=== PATIENT | male | born 1950 | race Caucasian/White ===

== ENCOUNTER 2019-05-10 12:26 | Emergency (ER) | payer MEDICARE, OTHER ==
[~2019-05-10] VITALS: Ht 182.9 cm; Wt 113.4 kg
[~2019-05-10 12:26] MED LIST: ASCO500C PO; ATOR20TA PO; FENO160T PO; LEVO25TA55 PO; LOSA1TAB2 PO; MELA3TAB56 PO; MULT1TAB6 PO; OMEP20CA10 PO; SILD50TA PO; VALA500T5 PO; WARF4TAB68 PO
[2019-05-10 12:30] VITALS: BP 149/62
[2019-05-10] MEDS ORDERED: LIDO:MAALOX 1:1 20 ML SINGLE DOSE. PO ONE (13:00)
[2019-05-10] MEDS ORDERED: LIDO15SO2 PO (13:13)
--- NOTE | 2019-05-10 13:14 | PHYS DOC ---
Past History Past Medical History: Arthritis, DVT, GERD, High Cholesterol, Hypertension, Hypothyroid, Pneumonia, Other Additional Past Medical Histor: DVT Past Surgical History: Hip Replacement, Other Additional Past Surgical Histo: SINUS, HEMORRHOID Smoking: Non-smoker Alcohol Use: None Drug Use: None Adult General Chief Complaint Chief Complaint: DIFFICULTY SWALLOWING HPI HPI Patient is a 69-year-old male who presents with complaint of burning pain in his esophagus after accidentally swallowing some water while he was in the hot tub last night. Patient states that the water tasted terrible and he knows that it was not chlorine because he knows the taste of chlorine. Patient states that he was worried that the water may have had bacteria in it and may have caused an infection in his esophagus. He denies any fever. Patient's wonders if maybe there were some different chemicals besides chlorine that were in the water. Patient does indicate that he felt burning pretty much immediately after he swallowed the water.[] Review of Systems Review of Systems Constitutional: Denies fever or chills [] Respiratory: Denies cough or shortness of breath [] Cardiovascular: No additional information not addressed in HPI [] GI: Complains of epigastric discomfort without vomiting or diarrhea [] Integument: Denies rash or skin lesions [] Current Medications Current Medications Current Medications Medications (Trade) Dose Ordered Sig/Eleni Start Time Stop Time Status Last Admin Dose Admin Multi-Ingredient Mouthwash/Gargle (Gi Cocktail) 20 ml 1X ONCE 05/10/19 13:00 05/10/19 13:01 DC 05/10/19 12:53 20 ML Allergies Allergies Allergies Coded Allergies Type Severity Reaction Last Updated Verified morphine Allergy Severe 03/27/14 Yes fondaparinux Allergy Intermediate 03/27/14 Yes nitroglycerin Adverse Reaction Severe 03/27/14 Yes Physical Exam Physical Exam Constitutional: Well developed, well nourished, no acute distress, non-toxic appearance. [] HENT: Normocephalic, atraumatic, bilateral external ears normal, oropharynx moist, no oral exudates, nose normal. [] Neck: Normal range of motion, no tenderness, supple, no stridor. [] Cardiovascular:Heart rate regular rhythm, no murmur [] Lungs & Thorax: Bilateral breath sounds clear to auscultation [] Abdomen: Bowel sounds normal, soft, no tenderness. [] Skin: Warm, dry, no erythema, no rash. [] Current Patient Data Vital Signs Vital Signs Date Time Temp Pulse Resp B/P (MAP) Pulse Ox O2 Delivery O2 Flow Rate FiO2 05/10/19 12:30 97.9 68 20 96 Room Air EKG EKG [] Radiology/Procedures Radiology/Procedures [] Course & Med Decision Making Course & Med Decision Making Pertinent Labs and Imaging studies reviewed. (See chart for details) Patient given GI cocktail in the emergency room and patient reports complete symptomatic relief. Dragon Disclaimer Dragon Disclaimer This electronic medical record was generated, in whole or in part, using a voice recognition dictation system. Departure Departure: Impression: Primary Impression: Chemical esophagitis Disposition: HOME, SELF-CARE Condition: STABLE Referrals: DEEP LÓPEZ (PCP) Patient Instructions: Esophagitis Scripts Lidocaine HCl (Lidocaine HCl Viscous) 15 Ml Solution 10 ML PO Q4HRS PRN for reflux, #100 ML Prov: BYRON STEVENSON Jr. DO 05/10/19 BYRON STEVENSON Jr. DO May 10, 2019 13:14
== END 2019-05-10 13:18 | disposition home or self-care (01) ==
LOC: ER 12:26
DX: K20.8 Other esophagitis (principal); M19.90 Unspecified osteoarthritis, unspecified site; Z86.718 Personal history of other venous thrombosis and embolism; K21.9 Gastro-esophageal reflux disease without esophagitis; E78.00 Pure hypercholesterolemia, unspecified; I10 Essential (primary) hypertension; E03.9 Hypothyroidism, unspecified; Z88.5 Allergy status to narcotic agent; Z88.8 Allergy status to other drugs, medicaments and biological substances
CPT/HCPCS: 99282

== ENCOUNTER 2021-03-19 17:32 | Observation (INO) | payer MEDICARE, OTHER ==
[~2021-03-19] VITALS: Ht 182.9 cm; Wt 113.5 kg
[~2021-03-19 17:32] MED LIST changes: +LIDO20SO10 PO; +MELA3TAB4 PO; -MELA3TAB56 PO; -OMEP20CA10 PO; +OMEP20CA16 PO
--- NOTE | 2021-03-19 17:56 | PHYS DOC ---
Past History Past Medical History: Arthritis, DVT, GERD, High Cholesterol, Hypertension, Hypothyroid, Pneumonia, Other Additional Past Medical Histor: DVT Past Surgical History: Hip Replacement, Other Additional Past Surgical Histo: SINUS, HEMORRHOID Smoking: Non-smoker Alcohol Use: None Drug Use: None General Adult HPI: HPI: ".. 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 now I got runny nose and fever.. non- productive cough... 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 Pt. has had COVID vaccination x 2 in Jul. ( Typle unknown- suspect Moderna vs Pfizer). No recent travel. 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 Has had a past medical history of DVTs and pulmonary embolisms and is taking Coumadin for anticoagulation. Patient denies any recent travel. Patient denies any history of immunosuppression. Has been taking Tylenol with minimal relief to his fever cannot take ibuprofen because of his Coumadin usage. Review of Systems: Review of Systems: Constitutional: History fever or chills Eyes: Denies change in visual acuity HENT: Denies nasal congestion or sore throat Respiratory: History cough or shortness of breath Cardiovascular: Denies chest pain or edema GI: Denies abdominal pain, nausea, vomiting, bloody stools or diarrhea : Denies dysuria Musculoskeletal: Denies back pain or joint pain. History of weakness Integument: Denies rash Neurologic: Denies headache, focal weakness or sensory changes Endocrine: Denies polyuria or polydipsia Lymphatic: Denies swollen glands Psychiatric: Denies depression or anxiety Family History: Family History: Noncontributory to presentation Current Medications: Current Meds: See nursing for home meds Allergies: Allergies: Allergies Coded Allergies Type Severity Reaction Last Updated Verified morphine Allergy Severe 03/27/14 Yes fondaparinux Allergy Intermediate 03/27/14 Yes nitroglycerin Adverse Reaction Severe 03/27/14 Yes Physical Exam: PE: Constitutional: Well developed, well nourished, moderate acute distress,ill in appearance. [] HENT: Normocephalic, atraumatic, bilateral external ears normal, oropharynx moist, no oral exudates, nose congested with clear rhinorrhea drainage Eyes: PERRLA, EOMI, conjunctiva normal, no discharge. [] Neck: Normal range of motion, no tenderness, supple, no stridor. [] Cardiovascular:Heart rate regular rhythm, no murmur [] DE to left Lungs & Thorax: Bilateral breath sounds to apex with scattered wheezes and crackles particularly in bases on auscultation [] Abdomen: Bowel sounds normal, soft, no tenderness, no masses, no pulsatile mas ses. [] Skin: Warm, dry, no erythema, no rash. [] Back: No tenderness, no CVA tenderness. [] Extremities: No tenderness, no cyanosis, no clubbing, ROM intact, ankle edema. [] No cording appreciated Neurologic: Alert and oriented X 3, normal motor function, normal sensory function, no focal deficits noted. [] Psychologic: Affect anxious, judgement normal, mood normal. [] EKG: EKG: My interpretation EKG shows a rhythm at 65 bpm left axis. Abnormal EKG. But no findings acute STEMI with contralateral changes time of this EKG is 1823 hrs. [] Radiology/Procedures: Radiology/Procedures: [][place] [address] IMAGING REPORT Signed PATIENT: FAMILIA DEGROOT ACCOUNT: [id number] : 1950 LOCATION: [address] [place] [address] AGE: 70 SEX: M EXAM STATUS: ADM IN ORD. PHYSICIAN: PRETTY DUQUE MD REASON: covid + , cough, weakness PROCEDURE: CHEST PA & LATERAL Chest PA and lateral: Reason for examination: History of DVT. Dyspnea. Covid positive. Cough and we akness. Comparison is made to previous chest dated 04/01/2014. The heart size is normal. Mediastinum is unremarkable. Lung nguyễn continue show pulmonary nodule in the right upper lobe which is stable. No new infiltrates or pleural effusions are evident. No acute bony abnormality is seen. Impression: No acute cardiopulmonary disease. CT angiogram of the chest with contrast: Helical images were obtained through the chest with intravenous administration of 100 cc Omnipaque 350 using PE protocol. 3-D MIPS reconstruction was performed in sagittal and coronal planes. Exposure: One or more of the following individualized dose reduction techniques were utilized for this examination: 1. Automated exposure control 2. Adjustment of the mA and/or kV according to patient size 3. Use of iterative reconstruction technique. No abnormality seen at the thyroid gland. The trachea and mainstem bronchi show no intraluminal lesions. No abnormality seen at the esophagus. The thoracic aorta shows no aneurysmal dilatation or dissection. The heart size is normal with no pericardial effusion. No pulmonary embolus is evident. Calcified nodule is seen in the right upper lobe. No other significant infiltrates or pleural effusions are seen. No pneumothorax is evident. No acute bony abnormalities are seen. No abnormality seen at the liver, spleen, adrenal glands, gallbladder or pancreas or the visualized portions of the kidneys. IMPRESSION: No pulmonary embolus. No acute infiltrates or pleural effusions evident. Electronically signed by: Marleny Land MD (03/19/2021 9:30 PM) [facility] DICTATED AND SIGNED BY: MARLENY LAND MD DATE: 03/19/212120 CC: PRETTY DUQUE MD; DEEP LÓPEZ; KVNG DEVI MD ~MTH0 0 Heart Score: C/O Chest Pain: No HEART Score for Chest Pain: HEART Score for Chest Pain Response (Comments) Value History Moderately Suspicious 1 ECG Nonspecific Repolarizatio 1 Age > 65 2 Risk Factors 1 or 2 Risk Factors 1 Troponin >1-<3x Normal Limit 1 Total 6 Risk Factors: Risk Factors: DM, Current or recent (<one month) smoker, HTN, HLP, family history of CAD, obesity. Risk Scores: Score 0 - 3: 2.5% MACE over next 6 weeks - Discharge Home Score 4 - 6: 20.3% MACE over next 6 weeks - Admit for Clinical Observation Score 7 - 10: 72.7% MACE over next 6 weeks - Early Invasive Strategies Course & Med Decision Making: Course & Med Decision Making Pertinent Labs and Imaging studies reviewed. (See chart for details) Discussed presentation,testing and tx. plan with Dr. Devi- Admit to his service with cardiology consult. Impression: 1. COVID +, ( did have two COVID vaccinations in ) 2. Accelerated hypertension 3. Elevated troponin 0 0.213 4. History of pulmonary embolisms and DVT on Coumadin 5. INR 2.3 6. Negative strep and flu [] Dragon Disclaimer: Dragon Disclaimer: This electronic medical record was generated, in whole or in part, using a voice recognition dictation system. Departure Departure: Referrals: DEEP LÓPEZ (PCP) Albert Disclaimer This chart was dictated in whole or in part using Voice Recognition software in a busy, high-work load, and often noisy Emergency Department environment. It may contain unintended and wholly unrecognized errors or omissions. PRETTY DUQUE MD Mar 19, 2021 17:55
[2021-03-19] MEDS ORDERED: ACETAMINOPHEN 500 MG TABLET PO ONE (18:15)
[2021-03-19] MEDS ORDERED: IOHEXOL 350 MG/ML 100 ML VIAL. IV ONE (18:15)
[2021-03-19] MEDS ORDERED: AZITHROMYCIN 250 MG TABLET. PO ONE (18:15)
[2021-03-19] MEDS ORDERED: IV RINGERS SOLUTION,LACTATED 1,000 ML IV ONE (18:15)
--- NOTE | 2021-03-19 18:31 | EKG ---
[address] [address] Test Date: 2021-03-19 Test Time: 18:23:43 Pat Name: FAMILIA DEGROOT Department: Room: Gender: M Senior Bookkeeper: MARGIE : 1950 Requested By: PRETTY DUQUE Order Number: [id number] Reading MD: Darvin Campo Measurements Intervals [place] Rate: 65 P: 38 UT: 158 QRS: -26 QRSD: 124 T: 95 QT: 398 QTc: 415 Interpretive Statements SINUS RHYTHM LEFTWARD AXIS LVH WITH REPOLARIZATION ABNORMALITY ABNORMAL ECG RI6.02 No previous ECG available for comparison Electronically Signed On 03-20-2021 12:41:00 CDT by Darvin Campo
[2021-03-19 18:56] LABS: BASO # 0.1 x10^3/uL (0.0-0.2); BASO % 1 % (0-3); EOS # 0.1 x10^3/uL (0.0-0.7); EOS % 1 % (0-3); HEMATOCRIT 44.2 % (39.0-53.0); HEMOGLOBIN 14.5 g/dL (13.0-17.5); LYMPH # 1.2 x10^3/uL (1.0-4.8); LYMPH % 15 % (24-48); MEAN CORPUSCULAR HEMOGLOBIN 33 pg (25-35); MEAN CORPUSCULAR HGB CONC 33 g/dL (31-37); MEAN CORPUSCULAR VOLUME 100 fL (79-100); MONO # 1.2 x10^3/uL (0.0-1.1); MONO % 15 % (0-9); NEUT # 5.4 x10^3uL (1.8-7.7); NEUT % 68 % (31-73); PLATELET COUNT 217 x10^3/uL (140-400); RED BLOOD COUNT 4.43 x10^6/uL (4.30-5.70); WHITE BLOOD COUNT 7.9 x10^3/uL (4.0-11.0)
[2021-03-19 19:14] LABS: INFLUENZA A PATIENT NEGATIVE (NEGATIVE); INFLUENZA B PATIENT NEGATIVE (NEGATIVE)
[2021-03-19] MEDS ORDERED: NITROGLYCERIN OINT 1 GM PACKET. TP ONE (19:15)
[2021-03-19] MEDS ORDERED: ONDANSETRON PF 4 MG/2 ML VIAL. IVP PRN (19:30)
[2021-03-19] MEDS ORDERED: ACETAMINOPHEN 325 MG TABLET PO PRN (19:30)
[2021-03-19 20:17] LABS: CALCIUM 9.2 mg/dL (8.5-10.1); CREATININE 1.1 mg/dL (0.7-1.3); GFR 66.4; POTASSIUM 4.4 mmol/L (3.5-5.1)
[2021-03-19] MEDS: NITROGLYCERIN OINT 1 GM PACKET. TP SCH (21:00)
--- NOTE | 2021-03-19 21:32 | RAD ---
Chest PA and lateral: Reason for examination: History of DVT. Dyspnea. Covid positive. Cough and weakness. Comparison is made to previous chest dated 04/01/2014. The heart size is normal. Mediastinum is unremarkable. Lung nguyễn continue show pulmonary nodule in the right upper lobe which is stable. No new infiltrates or pleural effusions are evident. No acute b faby abnormality is seen. Impression: No acute cardiopulmonary disease. CT angiogram of the chest with contrast: Helical images were obtained through the chest with intravenous administration of 100 cc Omnipaque 35 0 using PE protocol. 3-D MIPS reconstruction was performed in sagittal and coronal planes. Exposure: One or more of the following individualized dose reduction techniques were utilized for thi s examination: 1. Automated exposure control 2. Adjustment of the mA and/or kV according to patient size 3. Use of iterative reconstruction technique. No abnormality seen at the thyroid gland. The trachea and mainstem bronchi show no intraluminal lesio ns. No abnormality seen at the esophagus. The thoracic aorta shows no aneurysmal dilatation or dissec tion. The heart size is normal with no pericardial effusion. No pulmonary embolus is evident. Calcifi ed nodule is seen in the right upper lobe. No other significant infiltrates or pleural effusions are seen. No pneumothorax is evident. No acute bony abnormalities are seen. No abnormality seen at the liver, spleen, adrenal glands, gallbladder or pancreas or the visualized p ortions of the kidneys. IMPRESSION: No pulmonary embolus. No acute infiltrates or pleural effusions evident. Electronically signed by: Marleny Steward MD (03/19/2021 9:30 PM) BETTYE
[2021-03-19 22:00] VITALS: BP 177/67
[2021-03-19] MEDS ORDERED: MELATONIN 3 MG TABLET PO PRN (22:15)
[2021-03-20 05:55] LABS: BASO # 0.1 x10^3/uL (0.0-0.2); BASO % 1 % (0-3); EOS # 0.1 x10^3/uL (0.0-0.7); EOS % 1 % (0-3); HEMATOCRIT 41.1 % (39.0-53.0); LYMPH # 1.1 x10^3/uL (1.0-4.8); LYMPH % 15 % (24-48); MEAN CORPUSCULAR HEMOGLOBIN 34 pg (25-35); MEAN CORPUSCULAR HGB CONC 34 g/dL (31-37); MEAN CORPUSCULAR VOLUME 99 fL (79-100); MONO # 1.1 x10^3/uL (0.0-1.1); MONO % 16 % (0-9); NEUT # 4.9 x10^3uL (1.8-7.7); NEUT % 67 % (31-73); PLATELET COUNT 202 x10^3/uL (140-400); RED BLOOD COUNT 4.15 x10^6/uL (4.30-5.70); RED CELL DISTRIBUTION WIDTH 12.9 % (11.5-14.5); WHITE BLOOD COUNT 7.3 x10^3/uL (4.0-11.0)
[2021-03-20] MEDS ORDERED: HYDR-2145 PO (06:02)
[2021-03-20] MEDS ORDERED: LOSA50TA86 PO (06:02)
[2021-03-20] MEDS ORDERED: DIPH25CA58 PO (06:02)
[2021-03-20 06:05] LABS: CALCIUM 8.8 mg/dL (8.5-10.1); CREATININE 1.2 mg/dL (0.7-1.3); POTASSIUM 4.3 mmol/L (3.5-5.1)
[2021-03-20 06:12] VITALS: BP 142/71
[2021-03-20] MEDS ORDERED: diphenhydrAMINE HCL 25 MG CAPSULE PO PRN (06:15)
[2021-03-20] MEDS ORDERED: LEVOTHYROXINE 25 MCG TABLET. PO SCH (06:30)
[2021-03-20] MEDS ORDERED: PANTOPRAZOLE 40 MG TABLET. PO SCH (07:30)
--- NOTE | 2021-03-20 08:22 | PDOC2 ---
CARDIAC CONSULT DATE OF CONSULT DOS: DATE: 03/20/21 TIME: 08:12 REASON FOR CONSULT Reason for Consult Elevated troponin REFERRING PHYSICIAN Referring Physician Dr. Devi SOURCE Source: Chart review, Patient HPI History of Present Illness This is a 70 yo male who presented secondary to fevers, chills, body aches, cough, and shortness of breath. Troponin noted to be mildly elevated, which prompted this consult. He denies any chest pain, palpitations, dizziness, diaphoresis, or nausea/vomiting. Continue to have significant cough. 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 Is fully vaccinated. PAST MEDICAL HISTORY Cardiovascular: HTN, hyperipidemia Pulmonary: Pulmonary embolus (DVT) CENTRAL NERVOUS SYSTEM: CVA Endocrine: Hypothyroidism PAST SURGICAL HISTORY Past Surgical History: No pertinent history SOCIAL HISTORY ALCOHOL: none Drugs: None CURRENT MEDICATIONS Current Medications Current Medications Acetaminophen (Tylenol) 1,000 mg 1X ONCE PO Last administered on 03/19/21at 18:51; Start 03/19/21 at 18:15; Stop 03/19/21 at 18:21; Status DC Lactated Ringer's 1,000 ml @ 1,000 mls/hr 1X ONCE IV Last administered on 03/19/21at 18:37; Start 03/19/21 at 18:15; Stop 03/19/21 at 19:14; Status DC Azithromycin (Zithromax) 500 mg 1X ONCE PO Last administered on 03/19/21at 18:51; Start 03/19/21 at 18:15; Stop 03/19/21 at 18:21; Status DC Iohexol (Omnipaque 350 Mg/ml) 100 ml 1X ONCE IV Last administered on 03/19/21at 20:29; Start 03/19/21 at 18:15; Stop 03/19/21 at 18:21; Status DC Nitroglycerin (Nitro-Bid Oint) 1 inch 1X ONCE TP Last administered on 03/19/21at 19:41; Start 03/19/21 at 19:15; Stop 03/19/21 at 19:20; Status DC Ondansetron HCl (Zofran) 4 mg PRN Q4HRS PRN IVP NAUSEA/VOMITING; Start 03/19/21 at 19:30; Stop 03/20/21 at 19:29 Acetaminophen (Tylenol) 650 mg PRN Q4HRS PRN PO FEVER > 100.3'F; Start 03/19/21 at 19:30; Stop 03/20/21 at 19:29 Nitroglycerin (Nitro-Bid Oint) 1 inch TID TP ; Start 03/19/21 at 21:00 Melatonin (Melatonin) 3 mg PRN QHS PRN PO INSOMNIA Last administered on 03/19/21at 22:31; Start 03/19/21 at 22:15 Atorvastatin Calcium (Lipitor) 20 mg DAILY PO ; Start 03/20/21 at 09:00 Levothyroxine Sodium (Synthroid) 25 mcg DAILY06 PO Last administered on 03/20/21at 07:32; Start 03/20/21 at 06:30 Valacyclovir HCl (Valtrex) 500 mg DAILY PO ; Start 03/20/21 at 09:00 Fenofibrate (Tricor) 145 mg DAILY PO ; Start 03/20/21 at 09:00 Pantoprazole Sodium (Protonix) 40 mg DAILYAC PO ; Start 03/20/21 at 07:30 Diphenhydramine HCl (Benadryl) 50 mg PRN Q6HRS PRN PO ITCHING; Start 03/20/21 at 06:15 Hydrochlorothiazide (Hydrodiuril) 25 mg DAILY PO ; Start 03/20/21 at 09:00 Losartan Potassium (Cozaar) 50 mg QHS PO ; Start 03/20/21 at 21:00 Active Scripts Active Lidocaine HCl Viscous (Lidocaine HCl) 15 Ml Solution 10 Ml PO Q4HRS PRN Reported Hydrochlorothiazide Tablet (Hydrochlorothiazide) 25 Mg Tablet 25 Mg PO DAILY Cozaar (Losartan Potassium) 50 Mg Tablet 50 Mg PO QHS Benadryl (Diphenhydramine Hcl) 25 Mg Capsule 2 Cap PO PRN Q6HRS PRN 30 Days Viagra (Sildenafil Citrate) 50 Mg Tablet 1 Tab PO UD Melatonin 3 Mg Tablet 1 Tab PO QHS Fenofibrate 160 Mg Tablet 1 Tab PO DAILY Hyzaar 50-12.5 Tablet (Losartan/Hydrochlorothiazide) 1 Each Tablet 1 Tab PO DAILY Lipitor (Atorvastatin Calcium) 20 Mg Tablet 1 Tab PO DAILY Coumadin (Warfarin Sodium) 4 Mg Tablet 1 Tab PO DAILY Vitamin C (Ascorbic Acid) 500 Mg Capsule.er 500 Mg PO Centrum Complete Multivit Tab (Multivitamin/Iron/Folic Acid) 1 Each Tablet 1 Each PO Valtrex (Valacyclovir Hcl) 500 Mg Tablet 1 Tab PO DAILY Omeprazole 20 Mg Capsule. 1 Cap PO DAILY Synthroid (Levothyroxine Sodium) 25 Mcg Tablet 1 Tab PO DAILY ALLERGIES Allergies: Coded Allergies: morphine (Verified Allergy, Severe, 03/27/14) fondaparinux (Verified Allergy, Intermediate, 03/27/14) nitroglycerin (Verified Adverse Reaction, Severe, 03/27/14) ROS Review of Systems 14 point ROS conducted with pertinent positives noted above in HPI PHYSICAL EXAM General: Alert, Oriented X3, Cooperative, No acute distress HEENT: Atraumatic, Mucous membr. moist/pink Lungs: Other (on RA) Heart: Regular rate Abdomen: Soft, No tenderness Extremities: No edema, Normal pulses Skin: No breakdown Neuro: Sensation intact Psych/Mental Status: Mental status NL, Mood NL MUSCULOSKELETAL: Osteoarthritic changes both hands VITALS Vital Signs Vital Signs Date Time Temp Pulse Resp B/P (MAP) Pulse Ox O2 Delivery O2 Flow Rate FiO2 03/20/21 06:12 99.5 63 18 142/71 (94) 94 Room Air LABS LABS Laboratory Tests Test 03/19/21 00:10 03/19/21 18:16 03/19/21 18:24 03/19/21 18:25 Troponin I Quantitative 0.238 ng/mL (0-0.055) 0.213 ng/mL (0-0.055) White Blood Count 7.9 x10^3/uL (4.0-11.0) Red Blood Count 4.43 x10^6/uL (4.30-5.70) Hemoglobin 14.5 g/dL (13.0-17.5) Hematocrit 44.2 % (39.0-53.0) Mean Corpuscular Volume 100 fL (79-100) Mean Corpuscular Hemoglobin 33 pg (25-35) Mean Corpuscular Hemoglobin Concent 33 g/dL (31-37) Red Cell Distribution Width 13.0 % (11.5-14.5) Platelet Count 217 x10^3/uL (140-400) Neutrophils (%) (Auto) 68 % (31-73) Lymphocytes (%) (Auto) 15 % (24-48) Monocytes (%) (Auto) 15 % (0-9) Eosinophils (%) (Auto) 1 % (0-3) Basophils (%) (Auto) 1 % (0-3) Neutrophils # (Auto) 5.4 x10^3uL (1.8-7.7) Lymphocytes # (Auto) 1.2 x10^3/uL (1.0-4.8) Monocytes # (Auto) 1.2 x10^3/uL (0.0-1.1) Eosinophils # (Auto) 0.1 x10^3/uL (0.0-0.7) Basophils # (Auto) 0.1 x10^3/uL (0.0-0.2) Prothrombin Time 23.7 SEC (9.4-11.4) Prothromb Time International Ratio 2.3 (0.9-1.1) Activated Partial Thromboplast Time 29 SEC (23-33) Sodium Level 137 mmol/L (136-145) Potassium Level 4.4 mmol/L (3.5-5.1) Chloride Level 103 mmol/L (98-107) Carbon Dioxide Level 26 mmol/L (21-32) Anion Gap 8 (6-14) Blood Urea Nitrogen 20 mg/dL (8-26) Creatinine 1.1 mg/dL (0.7-1.3) Estimated GFR (Cockcroft-Gault) 66.4 Glucose Level 107 mg/dL (70-99) Calcium Level 9.2 mg/dL (8.5-10.1) JI-Vdg-M-Type Natriuretic Peptide 394 pg/mL (0-124) Group A Streptococcus Rapid Negative (NEGATIVE) Influenza Type A (Rapid) Negative (NEGATIVE) Influenza Type B (Rapid) Negative (NEGATIVE) SARS-CoV-2 Antigen (Rapid) Positive (NEGATIVE) Test 03/19/21 19:08 03/20/21 05:38 Creatine Kinase 205 U/L (39-308) White Blood Count 7.3 x10^3/uL (4.0-11.0) Red Blood Count 4.15 x10^6/uL (4.30-5.70) Hemoglobin 14.0 g/dL (13.0-17.5) Hematocrit 41.1 % (39.0-53.0) Mean Corpuscular Volume 99 fL (79-100) Mean Corpuscular Hemoglobin 34 pg (25-35) Mean Corpuscular Hemoglobin Concent 34 g/dL (31-37) Red Cell Distribution Width 12.9 % (11.5-14.5) Platelet Count 202 x10^3/uL (140-400) Neutrophils (%) (Auto) 67 % (31-73) Lymphocytes (%) (Auto) 15 % (24-48) Monocytes (%) (Auto) 16 % (0-9) Eosinophils (%) (Auto) 1 % (0-3) Basophils (%) (Auto) 1 % (0-3) Neutrophils # (Auto) 4.9 x10^3uL (1.8-7.7) Lymphocytes # (Auto) 1.1 x10^3/uL (1.0-4.8) Monocytes # (Auto) 1.1 x10^3/uL (0.0-1.1) Eosinophils # (Auto) 0.1 x10^3/uL (0.0-0.7) Basophils # (Auto) 0.1 x10^3/uL (0.0-0.2) Sodium Level 137 mmol/L (136-145) Potassium Level 4.3 mmol/L (3.5-5.1) Chloride Level 102 mmol/L (98-107) Carbon Dioxide Level 28 mmol/L (21-32) Anion Gap 7 (6-14) Blood Urea Nitrogen 18 mg/dL (8-26) Creatinine 1.2 mg/dL (0.7-1.3) Estimated GFR (Cockcroft-Gault) 60.0 Glucose Level 99 mg/dL (70-99) Calcium Level 8.8 mg/dL (8.5-10.1) Troponin I Quantitative 0.232 ng/mL (0-0.055) ASSESSMENT/PLAN Assessment/Plan 1. Acute viral syndrome, fevers; COVID +; fully vaccinated 08/04 2. Mild troponin elevation; highest 0.2. Most probably type II, demand ischemia secondary to above. CP free 3. Accelerated hypertension; better controlled 4. Hyperlipidemia; statin 5. H/o DVT, PE. on chronic OAC with warfarin. INR 2.3. CTA negative for PE 6. Hypothyroidism Recommendations Resume home antiHTN therapy Warfarin for DVT/PE prophylaxis Will arrange outpatient echo when recovered from COVID Supportive care GRIS ABDALLA APRN Mar 20, 2021 08:22
[2021-03-20] MEDS ORDERED: valACYclovir 500 MG TABLET. PO SCH (09:00)
[2021-03-20] MEDS ORDERED: ATORVASTATIN CALCIUM 20 MG TABLET PO SCH (09:00)
[2021-03-20] MEDS: NITROGLYCERIN OINT 1 GM PACKET. TP SCH ×2 (09:00→14:00)
[2021-03-20] MEDS ORDERED: hydroCHLOROthiazide 25 MG TABLET. PO SCH (09:00)
[2021-03-20] MEDS ORDERED: FENOFIBRATE NANOCRYSTALLIZED 145 MG TABLET PO SCH (09:00)
[2021-03-20 10:44] VITALS: BP 119/64
[2021-03-20 14:57] VITALS: BP 148/74
[2021-03-20] MEDS ORDERED: AZIT250T PO (15:09)
--- NOTE | 2021-03-20 15:47 | SSS ---
HISTORY OF PRESENT ILLNESS: The patient is a 70-year-old male patient who was admitted through the Emergency Room with a complaint of dyspnea, nonproductive cough, fever, chills, malaise, arthralgia, myalgia. 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 He had a past medical history of DVT and pulmonary embolism and is taking Coumadin for anticoagulation. He denied any recent travel, no history of immunosuppression, has been taking Tylenol with minimal relief to his fever, cannot take ibuprofen because of his Coumadin usage. He was extensively investigated in the Emergency Room, has had lab work and imaging studies. His white cell count was normal at 7.9 with normal platelet count. His prothrombin time was 23.7 and INR of 2.3. His chemistry was also mostly unremarkable except for slightly elevated troponin that has peaked up to 2.38 and he was continued on all his medications together with Zithromax and Tylenol and he did actually well. He remained afebrile since admission and his white cell count was normal as well as lab work. He was seen in consultation by the Cardiology team and it was felt that his mild troponin elevation is most probably type 2 demand ischemia secondary to above. He is chest pain free and his CT scan of the chest with PE protocol showed no evidence of pulmonary embolism, no acute infiltrate or pleural effusion evident and given that he remained afebrile, his oxygen saturation was 96% with a normal lung. A decision was made to discharge him home to continue on Zithromax with written instruction how to take care of himself at home and avoid infecting other family members and also with a clear instruction if his symptoms worsened that he should come back to the Emergency Room. PAST MEDICAL HISTORY: Significant for hypertension, hyperlipidemia, hypothyroidism, DVT and PE. He also has a history of obstructive sleep apnea, although he did not require CPAP or BiPAP according to him. PAST SURGICAL HISTORY: Significant for right total hip arthroplasty. He underwent also hemorrhoidectomy. He has fistulectomy, impacted wisdom teeth removal, dislocated right shoulder pending reconstructive surgery. He has colonoscopy multiple times as his father has also colon cancer. ALLERGIES: HE IS ALLERGIC TO FONDAPARINUX, MORPHINE AND NITROGLYCERIN. MEDICATIONS: He is currently on following medications: He is on diphenhydramine 25 mg. He takes two capsules every 6 hours as needed, Valtrex 500 mg p.o. daily, warfarin 4 mg daily, fenofibrate 160 mg daily, atorvastatin calcium 20 mg daily, sildenafil citrate 50 mg once as needed, losartan potassium 50 mg at bedtime, losartan/hydrochlorothiazide 50/12.5 one tablet once a day, hydrochlorothiazide 25 mg daily, Lidoderm (lidocaine patch viscous) 10 mL p.o. q. 4 hourly p.r.n., omeprazole 20 mg daily, levothyroxine sodium 25 mcg once a day, vitamin C for ascorbic acid 500 mg daily, multivitamin with mineral 1 tablet once a day and melatonin 3 mg at bedtime. FAMILY HISTORY: He has 4 brothers and 3 sisters. Two brothers have DVTs and PEs. Sisters are healthy. Mother at the age of 87, she was known to have DVT. Father at the age of 83 because of prostate cancer and also colon cancer. SOCIAL HISTORY: He is , has 2 daughters. He never smoked, does not drink alcohol or use recreational drugs. PHYSICAL EXAMINATION: GENERAL: When I saw him this afternoon, he was resting flat, comfortably in bed, in no apparent respiratory distress. There was no pallor, jaundice, cyanosis or thyromegaly. No jugular venous distention. No lower limb edema. VITAL SIGNS: His heart rate was 67, blood pressure was 119/64, temperature was 99, respiratory rate was 20 and oxygen saturation was 96%. HEAD, EYES, EARS, NOSE, AND THROAT: Normocephalic, atraumatic. NECK: Supple. HEART: Showed normal first and second heart sounds. No gallop, rub or murmur. CHEST: Clear to auscultation. No crepitation or rhonchi. ABDOMEN: Distended, soft, nontender. NEUROLOGIC: He is awake, alert, responding appropriately. All his cranial nerves are intact. He moves extremities without difficulty. He ambulates without assistance or assistive devices. LABORATORY DATA: His lab work showed a white cell count 7300, hemoglobin 14, hematocrit 41, MCV 99 and platelet count 202,000 with normal manual differential. His prothrombin time was 21.8, INR of 2.2. His chemistry showed a serum sodium 137, potassium 4.3, chloride 102, bicarbonate 28, anion gap of 7, BUN 18, creatinine 1.2. Estimated GFR was 60 mL per minute. His glucose was 99, calcium was 8.8. His troponin has peaked to 0.38, for which he was seen by the Cardiology team who felt that this is type 2 non-ST segment elevation due to demand ischemia. His coronavirus rapid testing was positive; however, the influenza A, B and group A Streptococcus rapid testing was negative. He was discharged home to continue all his medications including ascorbic acid 500 mg once a day, atorvastatin calcium 20 mg daily, diphenhydramine 50 mg every 6 hours as needed, fenofibrate 160 mg daily, hydrochlorothiazide 25 mg daily, levothyroxine sodium 25 mcg once a day, losartan potassium (Cozaar) 50 mg daily, losartan/hydrochlorothiazide 50/12.5 one tablet once a day, melatonin 3 mg at bedtime, multivitamin with mineral 1 tablet once a day, omeprazole 20 mg once a day, sildenafil 50 mg once a day as needed, valacyclovir and he was discharged also on Valtrex 500 mg daily and warfarin 4 mg daily. FINAL DISCHARGE DIAGNOSES: 1. Bronchitis due to coronavirus. 2. Mild troponin elevation, likely due to type 2 demand ischemia. 3. Accelerated hypertension, better controlled. 4. Hyperlipidemia, on statin. 5. History of deep venous thrombosis and pulmonary embolism. He is on warfarin and he has had inferior vena cava filter. 6. Hypothyroidism. The patient will be discharged home with clear instructions. I will continue the course of Zithromax and the patient was advised to come to the nearest Emergency Room if his symptoms have worsened, become more hypoxic or short of breath. JOYCELYN DR: Nitish TID: [id number]
[2021-03-20] MEDS ORDERED: LIDOCAINE 2% TOPICAL JELLY 5GM TUBE. TP PRN (16:00)
[2021-03-20] MEDS ORDERED: MELATONIN 3 MG TABLET PO SCH (21:00)
[2021-03-21] MEDS ORDERED: ASCORBIC ACID 500 MG TABLET PO SCH (09:00)
[2021-03-21] MEDS ORDERED: WARFARIN 4 MG TABLET. PO SCH (09:00)
[2021-03-21] MEDS ORDERED: LOSARTAN 50 MG TABLET. PO SCH ×2 (09:00)
[2021-03-21] MEDS ORDERED: MULTIVITAMIN with MINERAL TABLET. PO SCH (09:00)
== END 2021-03-20 16:42 | disposition home or self-care (01) ==
LOC: ER 17:32 → 1 SOUTH 19:18 → INTOOBSV 19:18
PROVIDERS: ADMIT Internal Medicine; ATTEND Internal Medicine
DX: U07.1 COVID-19 (principal); J40 Bronchitis, not specified as acute or chronic; I24.8 Other forms of acute ischemic heart disease; R77.8 Other specified abnormalities of plasma proteins; I10 Essential (primary) hypertension; E78.5 Hyperlipidemia, unspecified; G47.33 Obstructive sleep apnea (adult) (pediatric); E78.00 Pure hypercholesterolemia, unspecified; E03.9 Hypothyroidism, unspecified; Z86.711 Personal history of pulmonary embolism; Z86.718 Personal history of other venous thrombosis and embolism; Z79.01 Long term (current) use of anticoagulants; Z86.73 Personal history of transient ischemic attack (TIA), and cerebral infarction without residual deficits; Z96.641 Presence of right artificial hip joint; Z98.890 Other specified postprocedural states
CPT/HCPCS: 36415; 71046; 71275; 80048; 82550; 83880; 84484; 85025; 85610; 85730; 87040; 87070; 87426; 87804; 87880; 93005; 96360; 96361; 99285; G0378; J7120; Q9967; G0379